=== PATIENT | female | born 1995 | race Caucasian/White ===

== ENCOUNTER 2024-03-14 18:44 | Emergency (ER) | payer BC, SELFPAY ==
[2024-03-14 19:00] VITALS: BP 140/78; PULSE 95; RESP 19; TEMP 36.9; O2SAT 99; BMI 31.6
[2024-03-14 19:11] LABS: Color,Urine Dark Yellow (Yellow)
[2024-03-14 19:12] LABS: Apearance,Urine Cloudy (Clear); Bilirubin,Urine Negative (Negative); Blood, Urine 3+ (Negative); Glucose,Urine (UA) Negative (Negative); Ketones,Urine Negative (Negative); PH,Urine 5.5 (5.0-8.5); Protein,Urine Negative (Negative); Specific Gravity, Urine 1.015 (1.005-1.030); UTC Leukocyte Esterase,Urine Negative (Negative); UTC Nitrate,Urine Negative (Negative); Urobilinogen,Urine 0.2 EU/dl (0.2)
--- NOTE | 2024-03-14 19:12 | ED_ITS ---
Discharge Plan Disposition Patient Disposition: Home, Self-Care Condition: Good Prescriptions Prescriptions: New cephalexin 500 mg tablet 500 mg PO BID 7 Days Qty: 14 0RF No Action labetalol 300 mg tablet 300 mg PO Q8H Patient Comments: TAKE 1 TABLET BY MOUTH EVERY 8 HOURS Referrals Follow up/Referrals: Adri Bustos PA [Primary Care Provider] - See instructions Activity Restrictions/Add. Instructions Additional Instructions/Restrictions: Increase fluids, water and not soda or tea. Can drink cranberry juice or cranberry extract. Wipe front to back Wear cotton underwear Empty bladder after intercourse Start antibiotics immediately and make sure you take the full course although you may start to see improvement over the next 48 hours. You can eat yogurt or take probiotics to decrease diarrhea or yeast infection caused by the antibiotic Be sure to follow-up anytime for new or worsening symptoms in 48 hours for wound urine culture results be sure to let you PCP no recent urine for culture so they can request records and ensure that you have appropriate antibiotic if you are not getting better or getting worse. If symptoms worsen or do not improve return or be seen in the ER. Follow-up with primary care this week. CALL OBGYN INFORM THEM OF UTI Clinical Impressions Clinical Impression: UTI (urinary tract infection) Instructions Patient Instructions: DI for Urinary Tract Infection (UTI) [facility]Orestes [facility] [place] HPI General Stated complaint: Right side pain Mode of Arrival: Ambulatory Source of Information: Patient Limitations: No Limitations Time Seen by Provider: 03/14/24 19:12 Description of Symptoms (Recalled from Triage Doc. by RN): PATIENT C/O RIGHT SIDE PAIN X 2 WEEKS. PATIENT REPORTS SHE IS 2 WEEKS POST- HEENT Symptoms (Recalled from RN notes): No Resp Symptoms (Recalled from RN notes): No Skin Symptoms (Recalled from RN notes): No MS Symptoms (Recalled from RN notes): No Functional Status (Recalled from RN notes): WNL History of Present Illness Provider Complaint: 28 YR OLD FEMALE PRESENTS FOR RT FLANK PAIN FOR 2 WEEKS, 2 WEEKS - IS BREAST FEEDING Related Data Home Medications Medication Instructions Recorded Confirmed labetalol 300 mg tablet 300 mg PO Q8H 03/14/24 03/14/24 Previous Rx's Medication Instructions Recorded cephalexin 500 mg tablet 500 mg PO BID 7 days #14 tabs 03/14/24 Allergies Allergy/AdvReac Type Severity Reaction Status Date / Time No Known Allergies Allergy Verified 03/14/24 19:07 Worker's Comp Is this a Worker's Comp case?: No [facility] Disclaimer: The information contained in this section may have been updated after the patient was seen, as this information can be updated by other users. Medical History , MANAGER ACCOUNT MANAGEMENT) Hypertension Social History , MANAGER ACCOUNT MANAGEMENT) Smoking Status: Smoker, status unknown alcohol intake: never current occupational status: employed Travel in the last 8 weeks: None ROS Obtained: Yes All systems reviewed & no additional complaints except as documented Constitutional Constitutional: Reports system reviewed and no additional complaints, except as documented Eyes Eyes: Reports system reviewed and no additional complaints, except as documented ENT Ears, Nose, Mouth, and Throat: Reports system reviewed and no additional complaints, except as documented Cardiovascular Cardiovascular: Reports system reviewed and no additional complaints, except as documented Respiratory Respiratory: Reports system reviewed and no additional complaints, except as documented Gastrointestinal Gastrointestingal: Reports system reviewed and no additional complaints, except as documented Genitourinary Female Genitourinary: Reports system reviewed and no additional complaints, ex cept as documented, Reports as per HPI and Reports flank pain Musculoskeletal Musculoskeletal: Reports system reviewed and no additional complaints, except as documented Integumentary/Breasts Skin/Breast: Reports system reviewed and no additional complaints, except as documented Neurologic Neurologic: Reports system reviewed and no additional complaints, except as documented Endocrine Endocrine: Reports system reviewed and no additional complaints, except as documented Hematologic/Lymphatic Henatologic/Lymphatic: Reports system reviewed and no additional complaints, except as documented Allergic/Immunologic Allergic/Immunologic: Reports system reviewed and no additional complaints, except as documented Physical Exam General General appearance: alert and in no apparent distress Head Head exam: atraumatic Eye Eye exam: Present normal appearance and PERRL ENT ENT exam: Present normal exam, normal oropharynx, mucous membranes moist and TM's normal bilaterally Respiratory Respiratory exam: Present normal lung sounds bilaterally Cardiovascular Cardiovascular exam: Present regular rate and normal rhythm Back Exam Back exam: Present CVA tenderness (R) Neurological Exam Neurological exam: Present alert and oriented X3 Skin Skin exam: Present warm and intact Medical Decision Making Medical Records Medical records reviewed: Yes I reviewed the patient's medical records. Darryn Inquiry Pt receiving controlled substance: No Darryn was queried for this patient: No Vital Signs: 03/14/24 19:00 Temperature 98.4 F Temperature Source Oral Pulse Rate [Left Brachial] 95 H Respiratory Rate 19 Blood Pressure [Left Arm] 140/78 Blood Pressure Mean [Left Arm] 98 Blood Pressure Source [Left Arm] Automatic Cuff Blood Pressure Position [Left Arm] Sitting 02 Sat by Pulse Oximetry 99 Lab Data Lab results reviewed: Yes I reviewed the patient's lab results. Orders (Tests/Meds): ORDERS Category Date Time Status Urine Culture Stat Micro 03/14/24 19:11 Ordered
[2024-03-14 19:19] VITALS: BP 140/78; PULSE 95; RESP 19; TEMP 36.9; O2SAT 99
[2024-03-14] MEDS: cephALEXin 500MG CAPSULE 500 MG PO (19:24)
== END 2024-03-14 19:24 | disposition home or self-care (01) ==
PROVIDERS: Emergency Provider Nurse Practitioner Family; PCP Physician Assistant
DX: N39.0 Urinary tract infection, site not specified (principal); B96.89 Other specified bacterial agents as the cause of diseases classified elsewhere; I10 Essential (primary) hypertension; F17.210 Nicotine dependence, cigarettes, uncomplicated
CPT/HCPCS: 81003; 87086; 99204; 99212; G0463

== ENCOUNTER 2024-04-12 08:03 | Emergency (ER) | payer BC, SELFPAY ==
[2024-04-12 08:20] VITALS: BP 151/93; PULSE 130; RESP 20; TEMP 37.2; O2SAT 98; BMI 29.0
--- NOTE | 2024-04-12 08:43 | ED_ITS ---
Discharge Plan Disposition Patient Disposition: Home, Self-Care Condition: Good Prescriptions Prescriptions: New penicillin V potassium 500 mg tablet 500 mg PO BID Qty: 20 0RF No Action labetalol 300 mg tablet 300 mg PO Q8H Patient Comments: TAKE 1 TABLET BY MOUTH EVERY 8 HOURS tamsulosin 0.4 mg capsule 0.4 mg PO DAILY Patient Comments: TAKE 1 CAPSULE BY MOUTH DAILY FOR 14 DAYS oxybutynin chloride 5 mg tablet extended release 24hr 5 mg PO DAILY Patient Comments: TAKE 1 TABLET BY MOUTH DAILY NEEDED FOR BLADDER SPASM Referrals Follow up/Referrals: Provider,Referral, MD [Primary Care Provider] - See instructions Activity Restrictions/Add. Instructions Additional Instructions/Restrictions: *Monitor Temp, Over the counter Motrin or Tylenol as directed/as needed Tylenol every 4 hours and Motrin every 6 hours (as long as your family doctor has told you that you can take it) for fever or pain. and straight to ER if unable to lower temp less than 101.0 after medication given *Warm salt water gargles may help to soothe the throat *Throat Lozenges? *Warm fluids like tea with honey may help to soothe the throat? *Sleep elevated *Humidifier/Vaporizer *If you did not take Penicillin shot or was unable to, start taking antibiotic immediately and make sure that you take it for the FULL length of time although you should start to feel better in 24-48 hours *change toothbrush and toothpaste 24-48 hours after starting to take antibiotics so you do not reinfect yourself Monitor Temp. Tylenol and/or Ibuprofen as needed. ER if fever is no less than 101 despite alternating Tylenol and Ibuprofen * Encourage fluids, water, Gatorade, powerade, pedialyte if /toddler/or child *Cold fluids, popsicles and ice cream may feel good on his throat Follow up IMMEDIATELY for new or worsening symptoms or no Noticeable improvement over the next 48-72 hours. 911 for difficulty breathing or swallowing Clinical Impressions Clinical Impression: Strep throat Instructions Patient Instructions: Strep Throat, DI for Strep Throat Discharge ED Provider: Gauri Moore [facility] [place] HPI General Stated complaint: sore throat, chills, bodyaches Mode of Arrival: Ambulatory Source of Information: Patient Limitations: No Limitations Time Seen by Provider: 04/12/24 08:43 Description of Symptoms (Recalled from Triage Doc. by RN): PATIENT C/O SORE THROAT, CHILLS, AND BODY ACHES SINCE YESTERDAY HEENT Symptoms (Recalled from RN notes): Yes Resp Symptoms (Recalled from RN notes): No Skin Symptoms (Recalled from RN notes): No MS Symptoms (Recalled from RN notes): No Functional Status (Recalled from RN notes): WNL History of Present Illness Provider Complaint: Patient states that she has been having very bad sore throat, fever, body aches and chills since yesterday States that it hurts bad when she swallows so today when it was still bothering her she came in to get checked worried she may have strep Related Data Home Medications Medication Instructions Recorded Confirmed labetalol 300 mg tablet 300 mg PO Q8H 03/14/24 04/12/24 oxybutynin chloride 5 mg 5 mg PO DAILY 04/12/24 04/12/24 tablet,extended release 24 hr tamsulosin 0.4 mg capsule 0.4 mg PO DAILY 04/12/24 04/12/24 Previous Rx's Medication Instructions Recorded penicillin V potassium 500 mg 500 mg PO BID #20 tabs 04/12/24 tablet Allergies Allergy/AdvReac Type Severity Reaction Status Date / Time No Known Allergies Allergy Verified 03/14/24 19:07 Worker's Comp Is this a Worker's Comp case?: No [facility] Disclaimer: The information contained in this section may have been updated after the patient was seen, as this information can be updated by other users. Medical History (Updated 04/12/24 @ 08:56 by Gauri Moore APRN) Kidney stone Hypertension Social History (Updated 03/14/24 @ 19:19 by Orestes Lund ([facility]), [place]) Smoking Status: Smoker, status unknown alcohol intake: never current occupational status: employed Travel in the last 8 weeks: None ROS Obtained: Yes All systems reviewed & no additional complaints except as documented and Yes Systems reviewed as appropriate & no additional complaints except as documented Constitutional Constitutional: Reports system reviewed and no additional complaints, except as documented, Reports as per HPI, Reports body ache, Reports chills and Reports fever(s) ENT Ears, Nose, Mouth, and Throat: Reports system reviewed and no additional complaints, except as documented, Reports as per HPI and Reports sore throat Cardiovascular Cardiovascular: Reports system reviewed and no additional complaints, except as documented and Reports as per HPI Respiratory Respiratory: Reports system reviewed and no additional complaints, except as documented and Reports as per HPI Gastrointestinal Gastrointestingal: Reports system reviewed and no additional complaints, except as documented and as per HPI Musculoskeletal Musculoskeletal: Reports system reviewed and no additional complaints, except as documented and Reports as per HPI Integumentary/Breasts Skin/Breast: Reports system reviewed and no additional complaints, except as documented and Reports as per HPI Physical Exam General General appearance: alert and in no apparent distress ENT ENT exam: Present mucous membranes moist Expanded ENT Exam Throat exam: Present tonsillar erythema and tonsillar exudate Respiratory Respiratory exam: Present normal lung sounds bilaterally; Absent respiratory distress or wheezes Cardiovascular Cardiovascular exam: Present regular rate, normal rhythm and normal heart sounds Neurological Exam Neurological exam: Present alert, oriented X3 and normal gait Medical Decision Making Darryn Inquiry Pt receiving controlled substance: No Darryn was queried for this patient: No Vital Signs: 04/12/24 08:20 Temperature 99.0 F Temperature Source Oral Pulse Rate [Left Brachial] 130 H Respiratory Rate 20 Blood Pressure [Left Arm] 151/93 H Blood Pressure Mean [Left Arm] 112 Blood Pressure Source [Left Arm] Automatic Cuff Blood Pressure Position [Left Arm] Sitting 02 Sat by Pulse Oximetry 98 Oxygen Delivery Method Room Air Lab Data Lab results reviewed: Yes I reviewed the patient's lab results.
[2024-04-12 08:44] LABS: UTC Strep Screen (Rapid) Positive (Negative)
[2024-04-12 08:45] VITALS: BP 151/93; PULSE 130; RESP 20; TEMP 37.2; O2SAT 98
[2024-04-12 08:45] LABS: UTC Influenza A Antigen Negative (Negative); UTC Influenza B Antigen Negative (Negative)
[2024-04-12] MEDS: PENICILLIN V POTASSIUM 250MG TABLET 500 MG PO (09:05)
== END 2024-04-12 09:05 | disposition home or self-care (01) ==
PROVIDERS: Emergency Provider Nurse Practitioner
DX: J02.0 Streptococcal pharyngitis (principal); R07.0 Pain in throat; R50.9 Fever, unspecified
CPT/HCPCS: 87804; 87880; 99212; 99214; G0463

== ENCOUNTER 2024-05-28 09:05 | Emergency (ER) | payer BC, SELFPAY ==
[2024-05-28 09:15] VITALS: BP 140/91; PULSE 98; RESP 17; TEMP 36.7; O2SAT 99; BMI 29.1
--- NOTE | 2024-05-28 09:24 | ED_ITS ---
Discharge Plan Disposition Patient Disposition: Home, Self-Care Condition: Good Prescriptions Prescriptions: New amoxicillin-pot clavulanate 875-125 mg tablet 1 tab PO Q12H 10 Days Qty: 20 0RF fluticasone propionate [Flonase Allergy Relief] 50 mcg/actuation spray,suspension 1 spray intranasal DAILY Qty: 16 0RF Rx Instructions: administer into each nostril No Action labetalol 300 mg tablet 300 mg PO Q8H Patient Comments: TAKE 1 TABLET BY MOUTH EVERY 8 HOURS tamsulosin 0.4 mg capsule 0.4 mg PO DAILY Patient Comments: TAKE 1 CAPSULE BY MOUTH DAILY FOR 14 DAYS oxybutynin chloride 5 mg tablet extended release 24hr 5 mg PO DAILY Patient Comments: TAKE 1 TABLET BY MOUTH DAILY NEEDED FOR BLADDER SPASM penicillin V potassium 500 mg tablet 500 mg PO BID Qty: 20 0RF Referrals Follow up/Referrals: Provider,Referral, MD [Primary Care Provider] - See instructions Clinical Impressions Clinical Impression: Acute suppur right otitis media w/o spontan rupture tympanic membrane Instructions Patient Instructions: Middle Ear Infection Discharge ED Provider: Verónica Bill [facility] General Stated complaint: right ear pain Time Seen by Provider: 05/28/24 09:17 History of Present Illness Provider Complaint: Pt reports that her ear started hurting last night and she took Ibuprofen for the pain. She states that she woke up this morning with the ear still bothering her and came to the clinic. She states that she has not been swimming in 2 weeks. Related Data Home Medications Medication Instructions Recorded Confirmed labetalol 300 mg tablet 300 mg PO Q8H 03/14/24 04/12/24 oxybutynin chloride 5 mg 5 mg PO DAILY 04/12/24 04/12/24 tablet,extended release 24 hr tamsulosin 0.4 mg capsule 0.4 mg PO DAILY 04/12/24 04/12/24 Previous Rx's Medication Instructions Recorded penicillin V potassium 500 mg 500 mg PO BID #20 tabs 04/12/24 tablet amoxicillin 875 mg-potassium 1 tab PO Q12H 10 days #20 tabs 05/28/24 clavulanate 125 mg tablet fluticasone propionate 50 1 spray intranasal DAILY #16 grams 05/28/24 mcg/actuation nasal spray,suspension (Flonase Allergy Relief) Allergies Allergy/AdvReac Type Severity Reaction Status Date / Time No Known Allergies Allergy Verified 03/14/24 19:07 [facility] Disclaimer: The information contained in this section may have been updated after the patient was seen, as this information can be updated by other users. Medical History (Updated 05/28/24 @ 09:29 by Verónica Bill APRN) Kidney stone Hypertension Social History (Updated 03/14/24 @ 19:19 by [facility] [place]) Smoking Status: Smoker, status unknown alcohol intake: never current occupational status: employed Travel in the last 8 weeks: None ROS Obtained: Yes All systems reviewed & no additional complaints except as documented Constitutional Constitutional: Reports system reviewed and no additional complaints, except as documented Eyes Eyes: Reports system reviewed and no additional complaints, except as documented ENT Ears, Nose, Mouth, and Throat: Reports system reviewed and no additional complaints, except as documented, Reports otalgia and Reports nasal discharge Cardiovascular Cardiovascular: Reports system reviewed and no additional complaints, except as documented Respiratory Respiratory: Reports system reviewed and no additional complaints, except as documented Gastrointestinal Gastrointestingal: Reports system reviewed and no additional complaints, except as documented Genitourinary Female Genitourinary: Reports system reviewed and no additional complaints, except as documented Musculoskeletal Musculoskeletal: Reports system reviewed and no additional complaints, except as documented Integumentary/Breasts Skin/Breast: Reports system reviewed and no additional complaints, except as documented Neurologic Neurologic: Reports system reviewed and no additional complaints, except as documented Endocrine Endocrine: Reports system reviewed and no additional complaints, except as documented Hematologic/Lymphatic Henatologic/Lymphatic: Reports system reviewed and no additional complaints, except as documented Allergic/Immunologic Allergic/Immunologic: Reports system reviewed and no additional complaints, except as documented Physical Exam General General appearance: alert and in no apparent distress Head Head exam: atraumatic and normocephalic Eye Eye exam: Present normal appearance ENT ENT exam: Present mucous membranes moist Expanded ENT Exam TM/Canal exam: Right TM: erythema, effusion and loss of landmarks Nose exam: Absent sinus tenderness Nasal speculum exam: Bilateral: other (clear drainage) Mouth exam: Present normal external inspection Teeth exam: Present normal inspection Throat exam: Present normal inspection Neck Neck exam: Present normal inspection; Absent lymphadenopathy Chest Chest inspection: Present normal inspection and symmetric chest wall rise Respiratory Respiratory exam: Present normal lung sounds bilaterally Cardiovascular Cardiovascular exam: Present regular rate, normal rhythm and normal heart sounds Abdominal Exam Abdominal exam: Present soft and normal bowel sounds Extremities Exam Extremities exam: Present normal inspection Back Exam Back exam: Present normal inspection Neurological Exam Neurological exam: Present alert and oriented X3 Psychiatric Psychiatric exam: Present normal affect and normal mood Skin Skin exam: Present warm, dry and intact Lymphatic Lymphatic Findings: no adenopathy Medical Decision Making Darryn Inquiry Pt receiving controlled substance: No Darryn was queried for this patient: No
[2024-05-28 09:34] VITALS: BP 140/91; PULSE 98; RESP 17; TEMP 36.7; O2SAT 99
== END 2024-05-28 09:37 | disposition home or self-care (01) ==
PROVIDERS: Emergency Provider Nurse Practitioner Family
DX: H66.001 Acute suppurative otitis media without spontaneous rupture of ear drum, right ear (principal); H92.01 Otalgia, right ear
CPT/HCPCS: 99212; 99214; G0463

== ENCOUNTER 2024-06-21 17:02 | Emergency (ER) | payer BC, SELFPAY ==
[2024-06-21 17:10] VITALS: BP 151/109; PULSE 123; RESP 20; TEMP 36.6; O2SAT 97; BMI 28.1
--- NOTE | 2024-06-21 17:26 | ED_ITS ---
Discharge Plan Disposition Patient Disposition: Home, Self-Care Condition: Good Prescriptions Prescriptions: New triamcinolone acetonide 0.1 % ointment 1 applic topical BID 14 Days Qty: 80 0RF Rx Instructions: Apply to hands as directed Referrals Follow up/Referrals: Silver Mattson MD [Referring] - See instructions (call office for appointment) Provider,MD Tamanna [Primary Care Provider] - See instructions Activity Restrictions/Add. Instructions Additional Instructions/Restrictions: Use topical ointment as prescribed Apply at night and wear gloves as discussed Call and make appointment with Dermatology as discussed Using lukewarm water and mild, synthetic detergent (nonsoap) cleansers to wash hands. Most liquid body cleansers are actually?synthetic?detergent products with a neutral pH. In contrast, natural soaps (eg, Castile soap) have an alkaline pH and tend to be more aggressive detergents. ?Drying hands thoroughly after washing. ?Applying emollients immediately after hand drying and as often as possible. *Wearing cotton gloves under vinyl or other nonlatex gloves when performing wet work. ?Removing rings, watches, and bracelets before wet work. ?Wearing protective gloves in cold weather. ?Wearing task-specific gloves for frictional exposures (eg, gardening, carpentry). ?Avoiding cutaneous exposure to irritants (eg, harsh detergents, solvents, hair dyes, acidic foods [eg, citrus fruit]). Clinical Impressions Clinical Impression: Dyshidrotic dermatitis Instructions Patient Instructions: Contact Dermatitis, Eczema, Triamcinolone Topical Discharge ED Provider: Gauri Moore [facility] [place] General Stated complaint: rash on hands Mode of Arrival: Ambulatory Source of Information: Patient Limitations: No Limitations Time Seen by Provider: 06/21/24 17:26 Description of Symptoms (Recalled from Triage Doc. by RN): PATIENT C/O PAINFUL, BUMPY RASH WITH SWELLING TO HANDS SINCE SATURDAY HEENT Symptoms (Recalled from RN notes): No Resp Symptoms (Recalled from RN notes): No Skin Symptoms (Recalled from RN notes): Yes MS Symptoms (Recalled from RN notes): No Functional Status (Recalled from RN notes): WNL History of Present Illness Provider Complaint: Patient states that she has been having redness, bumpy like rash, and irritation to both hands worse on right since Saturday States she seen her PCP and they told her it was eczema and she has been putting aquaphor on them but hasnt helped much so today she came in to get it checked Related Data Previous Rx's Medication Instructions Recorded triamcinolone acetonide 0.1 % 1 applic topical BID 2 weeks #80 06/21/24 topical ointment grams Allergies Allergy/AdvReac Type Severity Reaction Status Date / Time No Known Allergies Allergy Verified 03/14/24 19:07 Worker's Comp Is this a Worker's Comp case?: No [facility] Disclaimer: The information contained in this section may have been updated after the patient was seen, as this information can be updated by other users. 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) Smoking Status: Smoker, status unknown alcohol intake: never current occupational status: employed Travel in the last 8 weeks: None ROS Obtained: Yes All systems reviewed & no additional complaints except as documented and Yes Systems reviewed as appropriate & no additional complaints except as documented Constitutional Constitutional: Reports system reviewed and no additional complaints, except as documented and Reports as per HPI Cardiovascular Cardiovascular: Reports system reviewed and no additional complaints, except as documented and Reports as per HPI Respiratory Respiratory: Reports system reviewed and no additional complaints, except as documented and Reports as per HPI Gastrointestinal Gastrointestingal: Reports system reviewed and no additional complaints, except as documented and as per HPI Integumentary/Breasts Skin/Breast: Reports system reviewed and no additional complaints, except as documented, Reports as per HPI, Reports pruritus and Reports rash Physical Exam General General appearance: alert and in no apparent distress ENT ENT exam: Present mucous membranes moist Respiratory Respiratory exam: Present normal lung sounds bilaterally; Absent respiratory distress or wheezes Cardiovascular Cardiovascular exam: Present regular rate, normal rhythm and normal heart sounds Neurological Exam Neurological exam: Present alert, oriented X3 and normal gait Skin Skin exam: Present rash (red, raised bumpy like rash noted appears like Dyshidotic Eczema) Medical Decision Making Darryn Inquiry Pt receiving controlled substance: No Darryn was queried for this patient: No Vital Signs: 06/21/24 17:10 Temperature 97.9 F Temperature Source Oral Pulse Rate [Left Brachial] 123 H Respiratory Rate 20 Blood Pressure [Left Arm] 151/109 H Blood Pressure Mean [Left Arm] 123 Blood Pressure Source [Left Arm] Automatic Cuff Blood Pressure Position [Left Arm] Sitting 02 Sat by Pulse Oximetry 97 Oxygen Delivery Method Room Air Medical Decision Narrative: Patient states she recently had child, denies breast feeding Medication discussed with pharmacy, mother aware to cover hands well when holding baby
[2024-06-21 17:30] VITALS: BP 150/91; PULSE 123; RESP 20; TEMP 36.6; O2SAT 97
== END 2024-06-21 17:50 | disposition home or self-care (01) ==
PROVIDERS: Emergency Provider Nurse Practitioner
DX: L30.1 Dyshidrosis [pompholyx] (principal)
CPT/HCPCS: 99212; 99214; G0463

== ENCOUNTER 2025-07-21 11:41 | Outpatient (CLI) | payer BC, SELFPAY ==
--- OUTSIDE RECORDS SUMMARY | 2025-07-12 09:45 | XMS_ITS | Encounter Summary ---
Author Organization [facility] Address [address] [place] [id number] Care Team Providers Care Train Operations Manager Name Role Phone Adri Bustos Primary Care Provider [phone] Reason for Referral * Consultation (Routine) - Authorized Specialty Diagnoses / Procedures Referred By Contac t Referred To Contact Otolaryngology Diagnoses Epistaxis Procedures SD OFFICE/OUTPATIENT NEW MODERATE MDM 45 MINUTES Mike Buchanan MD [address] [place] [address] Phone: tel: fax: Joseph Khalil MD [address] [place] [phone] Phone: tel: Referral ID Status Reason Start Date Expiration Date Visits Requested Visits Authorized Authorized Specialty Services Required 07/12/2025 10/11/2026 1 1 Reason for Visit * Reason Comments Nose Bleed X awhile. States alonzo t they have become more frequent. Foot Pain X rt foot, getting h yarely to walk, was previously diagnosed with tendonitis Encounter Details Date Type Department Care Team (Late st Contact Info) Description 07/12/2025 9:45 AM EDT Office Visit [facility] [address] [place] [address] Mike Buchanan MD [address] [place] [address] Epistaxis (Primary Dx); Tendinitis of right peroneus brevis tendon Social History Tobacco Use Types Packs/Day Years Used Date Smoking Tobacco: Never Passive Smoke Exposure: Never Smokeless Tobacco: Never Alcohol Use Standard Drinks/Week Comments No 0 (1 standard drink = 0.6 oz pur e alcohol) [facility] Utilities Answer Date Recorded In the past 12 months has th e [employer], gas, oil, or water [employer] threatened to shut off services in your home? No 02/28/2024 AUDIT-C Answer Date Recorded Q1: How often do you have a drink containing alcohol? Never 02/28/2024 Q2: How many drinks containi ng alcohol do you have on a typical day when you are drinking? Patient does not drink Q3: How often do you have si x or more drinks on one occasion? Never 02/28/2024 Overall Financial Resource Strain (CARDIA) Answe r Date Recorded How hard is it for you to pa y for the very basics like food, housing, medical care, and heating? Not hard at all 02/28/2024 PHQ-2 Answer Date Recorded Retired PHQ-9: Brief Depression Severity Measure Score 0 01/21/2023 [facility] of Occupat ional Health - Occupational Stress Questionnaire Answer Date Recorded Do you feel stress - tense, restless, nervous, or anxious, or unable to sleep at night because your mind is troubled all the time - these days? Not at all 02/28/2024 Exercise Vital Sign Answer Date Recorde d On average, how many days pe r week do you engage in moderate to strenuous exercise (like a brisk walk)? 3 days 02/28/2024 On average, how many minutes do you engage in exercise at this level? 30 min 02/28/2024 Hunger Vital Sign Answer Date Recorded Within the past 12 months, y ou worried that your food would run out before you got the money to buy more. Never true 02/28/20 24 Within the past 12 months, t he food you bought just didn't last and you didn't have money to get more. Never true 02/28/2024 PRAPARE - Transportation Answer Date Re corded In the past 12 months, has l ack of transportation kept you from medical appointments or from getting medications? No 01/31 In the past 12 months, has l ack of transportation kept you from meetings, work, or from getting things needed for daily living? No 02/28/2024 [place] Depression Scale Answer Date Recorded Retired [place] Depression Score 1 02/29/2024 Retired EPD Scale: Thought of Harming Self Unrec ognized value 02/29/2024 Abuse Screen Answer Date Recorded Feels Unsafe at Home or Work/School no 03/20/2024 Feels Threatened by Someone no 03/02 Does Anyone Try to Keep You From Having Contact with Others or Doing Things Outside Your Home? no 03/20/2024 Physical Signs of Abuse Present no 03/20/2024 Housing Stability Answer Date Recorded Current Living Arrangements home 03/02 Potentially Unsafe Housing Conditions Not on carlie e 03/20/2024 Family and Community Support Answer Javier e Recorded If for any reason you need h elp with day-to-day activities such as bathing, preparing meals, shopping, managing finances, etc., do you get the help you need? I don't need any help 02/28/2024 How often do you feel lonely or isolated from those around you? Never 02/28/2024 Employment Answer Date Recorded Do you want help finding or keeping work or a job? I do not need or want help 02/28/2024 Disabilities Answer Date Recorded Difficulty Concentrating, Remembering or Making Decisions no 03/20/2024 Difficulty Managing Errands Independently no 03/20/2024 Education Answer Date Recorded Do you want help with school or training? For example, starting or completing job training or getting a high school diploma, GED or equivalent No 02/28/2024 Preferred Language Irish 02/28/2024 PHQ-2 Answer Date Recorded Patient Health Questionnaire-2 Score 0 01/07/2025 Comments Unknown Sex and Gender Information Value Date Recorded Sex Assigned at Not on file Legal Sex Female 10:57 AM EDT Gender Identity Not on file Sexual Orientation Not on file documented as of this encounter Last Filed Vital Signs Vital Sign Reading Time Taken Comments Blood Pressure 122/80 07/12/2025 9:36 AM EDT Pulse 68 07/12/2025 9:36 AM EDT Temperature 36.2 C (97.1 F) 07/12/2025 9:36 AM EDT Respiratory Rate 18 07/12/2025 9:36 AM EDT Oxygen Saturation 98% 07/12/2025 9:36 AM EDT Inhaled Oxygen Concentration - - Weight 77.6 kg (171 lb) 07/12/2025 9:36 AM EDT Height 170.2 cm (5' 7 ) 07/12/2025 9:36 AM EDT Body Mass Index 26.78 07/12/2025 9:36 AM EDT documented in this encounter Progress Notes * Mike Buchanan MD - 07/12/2025 9:45 AM EDT Images from the original note were not included. Subjective Surekha Dominguez is a 30 y.o. female. History of Present Illness She has had prison nose bleeds Mainly from the left side These are almost every day recently and have been an issue for a long time She has not tried treatment She also is worried about her right foot She has been having more lateral right foot pain Hard to work out She has had pain since 2023 and had a normal XR of her foot 06/16/24 The following portions of the patient's history were reviewed and updated as appropriate: allergies, current medications, past family history, past medical history, past social history, past surgicalhistory, and problem list. Review of Systems Objective Physical Exam Vitals and nursing note reviewed. Constitutional: General: She is not in acute distress. Appearance: Normal appearance. She is well-developed. Cardiovascular: Rate and Rhythm: Normal rate and regular rhythm. Heart sounds: Normal heart sounds. Pulmonary: Effort: Pulmonary effort is normal. Breath sounds: Normal breath sounds. Musculoskeletal: Feet: Neurological: Mental Status: She is alert and oriented to person, place, and time. Psychiatric: Mood and Affect: Mood normal. Behavior: Behavior normal. Thought Content: Thought content normal. Judgment: Judgment normal. Assessment & Plan Diagnoses and all orders for this visit: 1. Epistaxis (Primary) - Ambulatory Referral to ENT (Otolaryngology) 2. Tendinitis of right peroneus brevis tendon - naproxen (Naprosyn) 500 MG tablet; Take 1 tablet by mouth 2 (Two) Times a Day With Meals. Dispense: 30 tablet; Refill: 0 Nose bleeds are chronic issue for Surekha and getting worse. Now a daily issue. Ok to try vaseline QHS and consider PRN AFRIN. Pt told Afrin use NOT longer than 3 days. 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 Reviewed XR with pt form 06/2024. Will place her in walking boot and use PRN naproxen and ice at night. INB in 32 weeks will have her see podiatry. Pt agrees and will call back INB documented in this encounter Plan of Treatment Not on file documented as of this encounter Visit Diagnoses Diagnosis Epistaxis- Primary Tendinitis of right peroneus brevis tendon documented in this encounter Care Teams Train Operations Manager Relationship Specialty Start Date End Date Adri Bustos PA [address] [place] [address] PCP - General Physician Field Checker 03/11/19 documented as of this encounter
[2025-07-21 11:51] LABS: Microscopic, Urine URINE MICROSCOPIC (MICROSCOPIC)
--- OUTSIDE RECORDS SUMMARY | 2025-07-21 11:55 | XMS_ITS | Clinical Summary ---
Author Organization [facility] Address [address] [place] [address] Care Team Providers Care Willow Specialists Name Role Phone Adri Bustos Primary Care Provider [phone] Allergies Active Allergy Reactions Criticality Noted Date Comments Haemophilus Influenzae Vaccines GI Intolerance Low 03/13/2021 'makes me sick and always get a red bump' Medications predniSONE (DELTASONE) 10 MG (21) dose packIndications: Rash and nonspecific skin eruption Use as directed on package 21 each 5 Active triamcinolone (KENALOG) 0.5 % ointmentIndicati ons:Rash and nonspecific skin eruption Apply 1 Application topically to the appropriate area as directed 2 (Two) Times a Day. 15 g 5 Active hydrOXYzine (ATARAX) 25 MG tabletIndication s:Rash and nonspecific skin eruption Take 1 tablet by mouth 3 (Three) Times a Day As Needed for Itching. 30 tablet 5 Active naproxen (Naprosyn) 500 MG tabletIndication s:Tendinitis of right peroneus brevis tendon Take 1 tablet by mouth 2 (Two) Times a Day With Meals. 30 tablet 5 Active Active Problems Problem Noted Date Diagnosed Date Nephrolithiasis 06/26/2024 Ureteral stone with hydronephrosis 03/18/2024 Chronic hypertension with superimposed pre-eclam psia 02/28/2024 (normal spontaneous vaginal delivery) 02/27 (spontaneous vaginal delivery) 09/15/2020 HTN (hypertension) 09/14/2020 PCOS (polycystic ovarian syndrome) 03/11/2019 Essential hypertension 03/11/2019 Difficult bowel movements 03/11/2019 Resolved Problems Problem Noted Date Diagnosed Date Resolved Date anemia 03/01/2024 07/12/2025 Term 02/28/2024 02/28/2024 Normal spontaneous vaginal delivery 05/14/2018 05/16/2018 with 37 weeks completed gestation 05/12/2018 05/16/2018 Encounters Date Type Department Care Team Description 07/12/2025 9:45 AM EDT Office Visit [facility] [address] [place] [phone] Mike Buchanan MD Epistaxis (Primary Dx); Tendinitis of right peroneus brevis tendon 07/12/2025 Travel from Last 3 Months Immunizations Immunization Administration Dates Next Due Tdap 12/02/2020 Family History Medical History Relation Name Comments Diabetes Paternal Grandfather Relation Name Status Comments Paternal Grandfather Social History Tobacco Use Types Packs/Day Years Used Date Smoking Tobacco: Never Passive Smoke Exposure: Never Smokeless Tobacco: Never Tobacco Cessation:Counseling Given: No Alcohol Use Standard Drinks/Week Comments No 0 (1 standard drink = 0.6 oz pur e alcohol) [facility] Utilities Answer Date Recorded In the past 12 months has [employer], gas, oil, or water [employer] threatened to shut off services in your [...] Brief Depression Severity Measure Score 0 01/21/2023 [facility] of Occupat ional Health - Occupational Stress [...] things needed for daily living? No 02/28/2024 [place] Depression Scale Answer Date Recorded Retired [place] Depression Score 1 02/29/2024 Retired EPD Scale: [...] GED or equivalent No 02/28/2024 Preferred Language Kuwaiti 02/28/2024 PHQ-2 Answer Date Recorded Patient Health Questionnaire-2 Score 0 01/07/2025 Comments Unknown Sex and Gender Information Value Date Recorded Sex Assigned at Not on file Legal Sex Female 10:57 AM EDT Gender Identity Not on file Sexual Orientation Not on file Last Filed Vital Signs Vital Sign Reading [...] Mass Index 26.78 07/12/2025 9:36 AM EDT Plan of Treatment Health Maintenance Due Date Last Done Comments Annual Gynecologic Pelvic an d Breast Exam 1995 ANNUAL PHYSICAL 01/21/2024 01/21/2023 COVID-19 Vaccine ( - 2023-2 5 season) 2024 PAP SMEAR 08/02/2025 08/02/2022 (Patient-Reported (Performed Externally)), 10/02/2018 (Patient-Reported (Performed Externally)) TDAP/TD VACCINES (2 - Td or Tdap) 12/02/2030 12/02/2020 HEPATITIS C SCREENING Completed 08/27/2023 , 03/21/2020, 10/22/2017 Pneumococcal Vaccine 0-49 Aged Out No longer eligible based on patient's age to complete this topic Medical Devices Implanted Type Area Foreign Collection Clerk Device Identifier Shelf Expiration Date Model / Serial / Lot Stnt Percuflx No Gw [id number] - [id number] Implanted:Qty: 1 on 03/20/2024 by Rafy Merritt MD at [facility] Right: Ureter [employer] 10/28/2026 [id number] / / [id number] Procedures Procedure Name Priority Date/Time Associated Diagnosis Comments HEPATITIS C ANTIBODY Routine 08/27/2023 11:41 AM EDT 10 weeks gestation of from Last 3 Months or Most Recently Relevant to Health Maintenance Results * Hepatitis C Antibody (08/27/2023 11:41 AM EDT) Hepatitis C Ab Non-Reacti ve Non-Reacti ve 08/28/2023 12:40 AM EDT [facility] Blood Venipuncture / Unknown 08/27/2023 11:41 AM EDT 08/27/2023 11:41 AM EDT Narrative [facility] - 08/28/2023 12:40 AM EDT Results may be falsely decreased if patient taking Biotin. us Kate Maldonado MD LAB BLOOD ORDERABLES Final Re sult [facility]
[address] [place] [address], from Last 3 Months or Most Recently Relevant to Health Maintenance Insurance [employer] Advance Directives * CPR (Attempt to Resuscitate) (Latest Code Status on File) Date Activated Date Inactivated Comments 02/29/2024 12:58 AM 03/01/2024 2:53 PM Question Answer Comments Code Status (Patient has no pulse and is not breathing): CPR (Attempt to Resuscitate) Medical Interventions (Patie nt has pulse or is breathing): Full * CPR (Attempt to Resuscitate) Date Activated Date Inactivated Comments 02/28/2024 12:29 PM 02/29/2024 12:58 AM Question Answer Comments Code Status (Patient has no pulse and is not breathing): CPR (Attempt to Resuscitate) Medical Interventions (Patie nt has pulse or is breathing): Full Support * CPR (Attempt to Resuscitate) Date Activated Date Inactivated Comments 09/15/2020 2:47 PM 09/17/2020 4:01 PM Question Answer Comments Code Status (Patient has no pulse and is not breathing): CPR (Attempt to Resuscitate) Medical Interventions (Patie nt has pulse or is breathing): Full * CPR (Attempt to Resuscitate) Date Activated Date Inactivated Comments 09/14/2020 6:06 PM 09/15/2020 2:47 PM Question Answer Comments Code Status (Patient has no pulse and is not breathing): CPR (Attempt to Resuscitate) Medical Interventions (Patie nt has pulse or is breathing): Full * Full Code Date Activated Date Inactivated Comments 05/14/2018 6:32 PM 05/16/2018 3:34 PM Care Teams Willow Specialists Relationship Specialty Start Date End Date Adri [place] [address] PCP - General Physician Engine Dynamometer Tester 03/11/19
--- OUTSIDE RECORDS SUMMARY | 2025-07-21 11:55 | XMS_ITS | Encounter Summary ---
Author Organization [facility] Address [address] [place] [address] Care Team Providers Care Snack Stewardess Name Role Phone Adri Bustos Primary Care Provider [phone] Encounter Details Date Type Department Care Team (Latest Contact Info) Description 07/12/2025 Travel Social History Tobacco Use Types Packs/Day Years Used Date Smoking Tobacco: Never Passive Smoke Exposure: Never Smokeless Tobacco: Never Alcohol Use Standard Drinks/Week Comments No 0 (1 standard drink = 0.6 oz pur e alcohol) [facility] Utilities Answer Date Recorded In the past 12 months has [employer] electric, gas, oil, or water company threatened to shut off services in your [...] Brief Depression Severity Measure Score 0 01/21/2023 [facility] [place] of Occupat ional Health - Occupational Stress [...] things needed for daily living? No 02/28/2024 [place] Depression Scale Answer Date Recorded Retired [place] Depression Score 1 02/29/2024 Retired EPD Scale: [...] GED or equivalent No 02/28/2024 Preferred Language Persian 02/28/2024 PHQ-2 Answer Date Recorded Patient Health Questionnaire-2 Score 0 01/07/2025 Comments Unknown Sex and Gender Information Value Date Recorded Sex Assigned at Not on file Legal Sex Female 10:57 AM EDT Gender Identity Not on file Sexual Orientation Not on file documented as of this encounter Plan of Treatment Not on file documented as of this encounter Visit Diagnoses Not on filedocumented in this encounter Care Teams Snack Stewardess Relationship Specialty Start Date End Date Adri [place] [address] PCP - General Physician Manager Land 03/11/19 documented as of this encounter
[2025-07-21 12:32] LABS: Anion Gap 14.0 mEq/L (5-15); Blood Urea Nitrogen 12 mg/dl (7-17); Calcium 9.4 mg/dl (8.4-10.2); Carbon Dioxide 26 mmol/L (22.0-30.0); Chloride 106 mmol/L (98-107); Creatinine,Serum 0.70 mg/dl (0.52-1.04); Estimated Glomerular Filt Rate 97 ml/min (>60); GFR (African American) 117 ML/MIN (>60); Glucose 91 mg/dl (74-100); Potassium 4.0 mmoL/L (3.5-5.1); Sodium 142 mmol/L (136-145)
[2025-07-21 12:36] LABS: Bilirubin,Urine Negative (Negative); Color,Urine YELLOW (Yellow); Glucose,Urine (UA) Negative (Negative); Ketones,Urine Negative (Negative); Leukocyte Esterase,Urine Negative (Negative); PH,Urine 6.0 (5.0-8.5); Protein,Urine Negative (Negative); Specific Gravity, Urine 1.020 (1.005-1.030); Urobilinogen,Urine 0.2 EU/dl (0.2)
[2025-07-21 12:37] LABS: C-Reactive Protein 0.4 mg/L (0-4)
[2025-07-21 13:01] LABS: Thyroid Stimulating Hormone 1.39 uIU/mL (0.465-4.68)
[2025-07-21 14:05] LABS: Bacteria,Urine Trace /lpf
[2025-07-22 13:11] LABS: Antinuclear Antibodies (ANA) Negative (Negative)
== END 2025-07-21 23:59 | disposition home or self-care (01) ==
PROVIDERS: PCP Physician Assistant; Visit Provider Student in an Organized Health Care Education/Training Program
DX: R04.0 Epistaxis (principal)
CPT/HCPCS: 36415; 80048; 81001; 82164; 84443; 85651; 86140